=== PATIENT | male | born 1990 | race Caucasian/White ===

== ENCOUNTER → 2020-11-14 | Outpatient (CLI) | payer BC ==
--- NOTE | 2020-11-14 19:47 | KCIC ---
EXAM: AP, lateral and oblique views of the left knee DATE: 11/14/2020 2:45 PM INDICATION: Reason: LEFT KNEE PAIN / Spl. Instructions: Lt knee pain since a hyperextension injury 3y rs ago.Pain anterior jointline / History: COMPARISON: No Prior FINDINGS: No acute fracture or dislocation. No joint effusion. Joint spaces are preserved without significant degenerative/proliferative change. IMPRESSION: No acute fracture or dislocation. Electronically signed by: Timbo Neumann MD (11/14/2020 7:45 PM) DUN[facility]
== END ==
LOC: KCIC 14:25
PROVIDERS: ATTEND Family Medicine
DX: M25.562 Pain in left knee (principal); Z87.828 Personal history of other (healed) physical injury and trauma
CPT/HCPCS: 73562